=== PATIENT | male | born 1985 | race Caucasian/White ===

== ENCOUNTER 2019-01-01 10:00 | Emergency (ER) | payer BC, OTHER ==
[~2019-01-01] VITALS: Ht 180.3 cm; Wt 97.7 kg
[2019-01-01 10:53] LABS: BASO # 0.1 10^3/uL (0.0-0.2); BASO % 0.4 % (0.0-1.0); EOS # 0.7 10^3/uL (0.0-0.50); EOS % 5.6 % (0.0-3.0); HEMATOCRIT 46.9 % (42.0-52.0); HEMOGLOBIN 15.9 g/dl (13.5-17.5); LYMPH # 2.2 10^3/uL (1.5-4.5); LYMPH % 19.3 % (24.0-44.0); MEAN CORPUSCULAR HEMOGLOBIN 30.2 pg (27.0-33.0); MEAN CORPUSCULAR HGB CONC 33.9 g/dl (32.0-36.5); MONO # 0.7 10^3/uL (0.0-0.8); MONO % 6.4 % (0.0-5.0); NEUTROPHILS # 7.8 10^3/uL (1.8-7.7); PLATELET COUNT, AUTOMATED 224 10^3/uL (150-450); RED BLOOD COUNT 5.27 10^6/uL (4.30-6.10); WHITE BLOOD COUNT 11.6 10^3/uL (4.0-10.0)
[2019-01-01 11:17] LABS: ALBUMIN 3.8 GM/DL (3.2-5.2); ALT/SGPT 34 U/L (12-78); AMYLASE 45 U/L (25-115); BILIRUBIN,DIRECT 0.2 MG/DL (0.0-0.2); BILIRUBIN,TOTAL 0.8 MG/DL (0.2-1.0); BLOOD UREA NITROGEN 12 MG/DL (7-18); CALCIUM LEVEL 8.8 MG/DL (8.5-10.1); CARBON DIOXIDE LEVEL 29 MEQ/L (21-32); CHLORIDE LEVEL 107 MEQ/L (98-107); CREATININE FOR GFR 0.93 MG/DL (0.70-1.30); GLOMERULAR FILTRATION RATE > 60.0 (>60); GLUCOSE, FASTING 104 MG/DL (70-100); LIPASE 117 U/L (73-393); POTASSIUM SERUM 4.4 MEQ/L (3.5-5.1); SODIUM LEVEL 140 MEQ/L (136-145); TOTAL PROTEIN 7.6 GM/DL (6.4-8.2)
[2019-01-01 11:21] LABS: H PYLORI QUALITATIVE IgG NEGATIVE (NEGATIVE)
[2019-01-01] MEDS ORDERED: ISOVUE-370 76% 100ML VIAL (Q9967) As Ordered ONE (11:33)
[2019-01-01 11:36] LABS: APPEARANCE, URINE CLEAR (CLEAR); BACTERIA, URINE AUTO NEGATIVE (NEGATIVE); BILIRUBIN, URINE AUTO NEGATIVE (NEGATIVE); BLOOD, URINE BLOOD NEGATIVE (NEGATIVE); COLOR, URINE YELLOW (YELLOW); GLUCOSE, URINE (UA) AUTO NEGATIVE (NEGATIVE); KETONE, URINE AUTO NEGATIVE (NEGATIVE); LEUKOCYTE ESTERASE, URINE AUTO NEGATIVE (NEGATIVE); NITRITE, URINE AUTO NEGATIVE (NEGATIVE); PROTEIN, URINE AUTO NEGATIVE (NEGATIVE); RBC, URINE AUTO 2 /HPF (0-3); SPECIFIC GRAVITY URINE AUTO 1.013 (1.002-1.035); SQUAMOUS EPITHELIAL CELL UR AU 0 /HPF (0-6); UROBILINOGEN, URINE AUTO 0.2 mg/dL (0.0-2.0); WBC, URINE AUTO 0 /HPF (0-3)
--- NOTE | 2019-01-01 11:45 | REP ---
Clinical: Acute chest and epigastric pain . Comparison: None . Technique: PA and lateral. Findings: The mediastinum and cardiac silhouette are normal. The lung be are clear and without acute consolidation, effusion, or pneumothorax. The skeletal structures are intact and normal. Impression: 1. No acute cardiopulmonary process. Electronically Signed by Zaire Cabral MD 01/01/2019 11:37 A
--- NOTE | 2019-01-01 12:10 | REP ---
Clinical: Acute epigastric pain. Technique: Axial contrast enhanced images from the lung bases to the pubic symphysis oozing 100 ml Isovue 370 intravenous contrast material with coronal and sagittal re-formations. Findings: Gallbladder wall thickening and enhancement with pericholecystic inflammatory stranding consistent with acute cholecystitis. Mild fatty infiltration to the liver suggested. Spleen, pancreas, bilateral adrenal glands and kidneys are normal. The enteric system is without obstruction or acute inflammatory process. Evidence of prior appendectomy noted. Few scattered sigmoid diverticula noted without acute diverticulitis. Pelvis demonstrates normal bladder and age appropriate prostate/seminal vesicles. No ascites. No free air. No adenopathy. Abdominal aorta and vasculature without aneurysm or dissection. Ischial skeletal structures are intact. Impression: Findings consistent with acute cholecystitis. Correlation recommended. Electronically Signed by Zaire Cabral MD 01/01/2019 12:01 P
[2019-01-01] MEDS ORDERED: AUGM875T28 PO (13:05)
[2019-01-01 13:20] VITALS: BP 137/83
--- NOTE | 2019-01-02 19:28 | ECGEPIP ---
[facility] - ED Test Date: 2019-01-01 Pat Name: ELIO JONES Department: Room: - Gender: Male Clinic Office Coordinator: KG : 1985 Requested By: Steph Johnson [employer] Order Number: [id number] Reading MD: Noreen Connolly Measurements Intervals [place] Rate: 64 P: 20 HI: 152 QRS: 23 QRSD: 102 T: 26 QT: 373 QTc: 386 Interpretive Statements SINUS RHYTHM NO PRIOR Electronically Signed on 01-02-2019 19:27:44 EDT by Noreen Connolly
== END 2019-01-01 13:26 | disposition home or self-care (01) ==
LOC: M ED 10:00
DX: K81.0 Acute cholecystitis (principal); F17.200 Nicotine dependence, unspecified, uncomplicated; Z88.0 Allergy status to penicillin
CPT/HCPCS: 71046; 74177; 80048; 80076; 81001; 82150; 83690; 85025; 86677; 93005; 99284; Q9967